=== PATIENT | female | born 2000 | race Caucasian/White ===

== ENCOUNTER 2019-07-26 12:39 | Emergency (ER) | payer MEDICAID ==
[~2019-07-26] VITALS: Ht 157.5 cm; Wt 49.9 kg
[2019-07-26 12:47] VITALS: BP 114/69
--- NOTE | 2019-07-26 12:54 | NUR ---
WAIT AT LOBBY. HANDED ON URINE CUP.
--- NOTE | 2019-07-26 13:48 | NUR ---
PT AMBULATED TO BED 09.
--- NOTE | 2019-07-26 13:54 | NUR ---
ERMD AT BEDSIDE
--- NOTE | 2019-07-26 13:55 | NUR ---
18 Y/O FEMALE PRESENTS TO ER WITH BURNING, PRESSURE, AND SCANT URINATION, SINCE THE AM. SHE DENIES ANY HEMATURIA. STATES PAIN IS AT A 7. NKDA. DENIES ANY PMH, DENIES TAKING ANY PRESCRIBED OR OTC MEDS. LAST MENSTRUAL CYCLE WAS 20 JUL 2019. SIDERAIL X1, WILL CONTINUE TO MONITOR
[2019-07-26] MEDS ORDERED: PHENAZOPYRIDINE 100 MG TAB PO ONE (14:05)
[2019-07-26] MEDS ORDERED: SULFAMETH/TRIMETH DS 800/160MG 1 TAB PO ONE (14:05)
[2019-07-26 14:24] VITALS: BP 114/69
--- NOTE | 2019-07-26 14:24 | NUR ---
PT LEFT WITHOUT TAKING RX
--- NOTE | 2019-07-26 14:24 | NUR ---
Patient discharged with v/s stable. Written and verbal after care instructions given and explained. Patient alert, oriented and verbalized understanding of instructions. Ambulatory with steady gait. All questions addressed prior to discharge. ID band removed. Patient advised to follow up with PMD. Rx of BACTRIM, AND PYRIDIUM given. Patient educated on indication of medication including possible reaction and side effects. Opportunity to ask questions provided and answered.
== END 2019-07-26 14:21 | disposition home or self-care (01) ==
LOC: MED 12:39
DX: N39.0 Urinary tract infection, site not specified (principal)
CPT/HCPCS: 81002; 81025; 99283

== ENCOUNTER 2019-12-08 15:24 | Emergency (ER) | payer MEDICAID ==
[~2019-12-08] VITALS: Ht 157.5 cm; Wt 49.9 kg
[2019-12-08 15:29] VITALS: BP 112/65
--- NOTE | 2019-12-08 15:36 | NUR ---
urine cup given for sample
--- NOTE | 2019-12-08 15:36 | NUR ---
c/o started today with frequency, urgency, hesistancy, and burning pain upon voiding denies dc/bleeding---
--- NOTE | 2019-12-08 15:43 | NUR ---
luann alarcon evaluating pt.
[2019-12-08 16:27] VITALS: BP 112/65
--- NOTE | 2019-12-08 16:27 | NUR ---
Patient discharged with v/s stable. Written and verbal after care instructions given and explained. Patient alert, oriented and verbalized understanding of instructions. Ambulatory with steady gait. All questions addressed prior to discharge. ID band removed. Patient advised to follow up with PMD. Rx of bactrim & pyridium given. Patient educated on indication of medication including possible reaction and side effects. Opportunity to ask questions provided and answered.
[2019-12-10 06:09] LABS: CHLAMYDIA TRACHOMATIS AMP DNA Negative (Negative)
== END 2019-12-08 16:27 | disposition home or self-care (01) ==
LOC: MED 15:24
DX: N39.0 Urinary tract infection, site not specified (principal)
CPT/HCPCS: 36415; 81002; 81025; 87491; 99283

== ENCOUNTER 2020-01-25 10:37 | Emergency (ER) | payer MEDICAID ==
[~2020-01-25] VITALS: Ht 157.5 cm; Wt 49.9 kg
[2020-01-25 10:43] VITALS: BP 104/58
[2020-01-25] MEDS ORDERED: PHENAZOPYRIDINE 100 MG TAB PO ONE (11:00)
[2020-01-25] MEDS ORDERED: cephALEXin 500 MG CAP PO ONE (11:00)
--- NOTE | 2020-01-25 11:01 | NUR ---
19 Y/O FEMALE WITH HX OF UTI SYMPTOMS PRESENTS WITH 1 DAY LOWER ABD PAIN, DYSURIA, FREQUENCY AND URINARY URGENCY. PT DENIES ANY N/V/D. VSS. URINE COLLECTED AND SEND TO LAB. RESP EVEN AND UNLABORED. DENIES ANY SOB/COUGH/FEVER NO PMH NKA
[2020-01-25 11:33] VITALS: BP 101/62
--- NOTE | 2020-01-25 11:33 | NUR ---
Patient discharged with v/s stable. Written and verbal after care instructions given and explained. Patient alert, oriented and verbalized understanding of instructions. Ambulatory with steady gait. All questions addressed prior to discharge. ID band removed. Patient advised to follow up with PMD. Rx of PYRIDIUM, CEPHALEXIN given. Patient educated on indication of medication including possible reaction and side effects. Opportunity to ask questions provided and answered. PT ISNTRUCTED ON HOME CARE INSTRUCTIONS AND THAT URINE WILL TURN ARABELLA IN COLOR WITH PYRIDIUM
[2020-01-25 12:02] LABS: APPEARANCE,URINE HAZY (CLEAR); BILIRUBIN,URINE NEGATIVE (NEGATIVE); BLOOD, URINE 3+ (NEGATIVE); COLOR,URINE YELLOW (YELLOW); LEUKOCYTE ESTERASE ,URINE 2+ (NEGATIVE); NITRITE, URINE NEGATIVE (NEGATIVE); UGLUCOSE NEGATIVE (NEGATIVE)
[2020-01-25 12:19] LABS: RBC,URINE 11-20 (MOD) /HPF (0-5)
[2020-01-25 12:20] LABS: WBC,URINE 16-25 (MOD) /HPF (0-5)
== END 2020-01-25 11:33 | disposition home or self-care (01) ==
LOC: MED 10:37
DX: N39.0 Urinary tract infection, site not specified (principal)
CPT/HCPCS: 81001; 81025; 87086; 99283

== ENCOUNTER 2020-02-17 13:52 | Emergency (ER) | payer MEDICAID ==
[~2020-02-17] VITALS: Ht 157.5 cm; Wt 50.8 kg
[2020-02-17 14:02] VITALS: BP 120/92
--- NOTE | 2020-02-17 15:02 | NUR ---
PT SITTING IN LOBBY, NAD
--- NOTE | 2020-02-17 15:03 | NUR ---
PT TO CHAIR C
[2020-02-17] MEDS ORDERED: cefTRIAXone 1,000 MG in LIDOCAINE MPF 1% 2.1 ML IM ONE (15:20)
--- NOTE | 2020-02-17 15:40 | NUR ---
PT STATES SHE DOES NOT WANT TO ROCPHIN SHOT. ASHLEY SAUCEDA MADE AWARE
[2020-02-17] MEDS ORDERED: cefTRIAXone 1,000 MG VIAL ONE (15:46)
[2020-02-17] MEDS ORDERED: LIDOCAINE MPF 1% 5 ML ONE (15:46)
--- NOTE | 2020-02-17 15:52 | NUR ---
C/O RECURRING DYSURIA , BURNING PAIN UPON VOIDING WITH LOWER BACK PAIN SEEN AND TREATED 2 WKS AGO BUT CONTINUES WITH PAIN AND DIFFICULTY VOIDING
[2020-02-17 15:53] VITALS: BP 118/81
[2020-02-17 16:57] LABS: BILIRUBIN,URINE NEGATIVE (NEGATIVE); BLOOD, URINE 3+ (NEGATIVE); COLOR,URINE YELLOW (YELLOW); LEUKOCYTE ESTERASE ,URINE 2+ (NEGATIVE); NITRITE, URINE NEGATIVE (NEGATIVE); UGLUCOSE NEGATIVE (NEGATIVE)
[2020-02-17 16:58] LABS: APPEARANCE,URINE CLOUDY (CLEAR)
[2020-02-17 17:12] LABS: WBC,URINE TOO MANY TO COUNT /HPF (0-5)
--- NOTE | 2020-02-20 11:08 | NUR ---
Urine culture received from lab. Culture and sensitivity received and shown to Dr. Wylie. New Rx for Cipro 500mg BID x7 days received. Phone number on file went directly to [facility]. Message was left for patient to return the phone call.
--- NOTE | 2020-02-20 15:49 | NUR ---
New Rx for Cipro 500mg BID x 14 tabs received. Patient called and given culture results. Spoke with patient to obtain pharmacy preference. New Rx called into [facility] pharmacy and spoke to [place]. Copy of C&S placed in discrepancy folder.
== END 2020-02-17 15:54 | disposition home or self-care (01) ==
LOC: MED 13:52
DX: N39.0 Urinary tract infection, site not specified (principal)
CPT/HCPCS: 81001; 81025; 87086; 87186; 99283; J0696; J2001

== ENCOUNTER 2020-03-15 19:19 | Emergency (ER) | payer MEDICAID ==
[~2020-03-15] VITALS: Ht 157.5 cm; Wt 52.2 kg
[2020-03-15 19:26] VITALS: BP 100/70
--- NOTE | 2020-03-15 19:26 | NUR ---
PT AMBULATED TO BED #4
--- NOTE | 2020-03-15 19:41 | NUR ---
MD CELIS AT BEDSIDE
--- NOTE | 2020-03-15 19:52 | NUR ---
UA COLLECTED DIP AND PREG TEST DONE, RESULT IN COMPUTER
--- NOTE | 2020-03-15 19:52 | NUR ---
PT C/O RLQ PAIN X 3 DAYS, PAIN 7/10 ACHING TYPE PAIN, PAIN RADIATES INTO HER BACK. DENIES ANY N/V/D. DENIES PAIN WITH URIANTION. AFEBRILE. BED IN LOWEST POSITION AND SIDERAIL UP X 1. NKA NO HX
[2020-03-15] MEDS: KETOROLAC 30 MG/ML VIAL IM ONE (20:09)
[2020-03-15 20:14] LABS: APPEARANCE,URINE CLEAR (CLEAR); BILIRUBIN,URINE NEGATIVE (NEGATIVE); BLOOD, URINE 3+ (NEGATIVE); COLOR,URINE YELLOW (YELLOW); LEUKOCYTE ESTERASE ,URINE NEGATIVE (NEGATIVE); NITRITE, URINE NEGATIVE (NEGATIVE); PH,URINE 7.5 (5.0-9.0); UGLUCOSE NEGATIVE (NEGATIVE)
--- NOTE | 2020-03-15 20:19 | NUR ---
PT RESTING MORE COMFORTABLY, STATES PAIN 3/10 AT THIS TIME.
[2020-03-15 20:22] LABS: RBC,URINE 11-20 (MOD) /HPF (0-5); WBC,URINE 0-5 /HPF (0-5)
--- NOTE | 2020-03-15 20:42 | NUR ---
ULTRASOUND AT BEDSIDE
--- NOTE | 2020-03-15 21:00 | NUR ---
PT NOW STATES POST ULTRASOUND ABD PAIN HAS INCREASED, MD CELIS AWARE
[2020-03-15] MEDS: fentaNYL citrate 0.05 MG/ML VIAL NS ONE (21:09)
--- NOTE | 2020-03-15 22:30 | NUR ---
PT RESTING MORE COMFORTABLY, PAIN DECREASED
[2020-03-15 22:49] VITALS: BP 105/71
--- NOTE | 2020-03-15 22:52 | NUR ---
Patient discharged with v/s stable. Written and verbal after care instructions given and explained. Patient alert, oriented and verbalized understanding of instructions. Ambulatory with steady gait. All questions addressed prior to discharge. ID band removed. Patient advised to follow up with PMD. Rx of NAPROSYN AND NORCO given. Patient educated on indication of medication including possible reaction and side effects. Opportunity to ask questions provided and answered.
== END 2020-03-15 22:49 | disposition home or self-care (01) ==
LOC: MED 19:19
DX: R10.2 Pelvic and perineal pain (principal); N83.209 Unspecified ovarian cyst, unspecified side; F12.90 Cannabis use, unspecified, uncomplicated
CPT/HCPCS: 76856; 81001; 81025; 93976; 96372; 99284; J1885; J3010; Q0092

== ENCOUNTER 2020-06-11 17:20 | Emergency (ER) | payer MEDICAID ==
[~2020-06-11] VITALS: Ht 162.6 cm; Wt 52.2 kg
[2020-06-11 17:21] VITALS: BP 112/72
--- NOTE | 2020-06-11 17:46 | NUR ---
19 Y/O FEMALE BIB SELF C/O UTI SYMPTOMS X2 DAYS, DYSURIA AND URGENCY. PT IS ALSO ON HER MENSTRUAL PERIOD. LAST UTI WAS TWO MONTHS AGO. DENIES ANY CRAMPING OR BACK PAIN. NO PMH NKA
[2020-06-11] MEDS ORDERED: SULFAMETH/TRIMETH 400/80MG 1 TAB ONE (17:58)
[2020-06-11] MEDS ORDERED: SULFAMETH/TRIMETH 400/80MG 1 TAB PO ONE (18:00)
[2020-06-11 18:01] VITALS: BP 112/72
--- NOTE | 2020-06-11 18:01 | NUR ---
Patient discharged with v/s stable. Written and verbal after care instructions given and explained. Patient alert, oriented and verbalized understanding of instructions. Ambulatory with steady gait. All questions addressed prior to discharge. ID band removed. Patient advised to follow up with PMD. Rx of BACTRIM, PHENOAZOPYRIDINE given. Patient educated on indication of medication including possible reaction and side effects. Opportunity to ask questions provided and answered.
== END 2020-06-11 18:01 | disposition home or self-care (01) ==
LOC: MED 17:23
DX: N39.0 Urinary tract infection, site not specified (principal)
CPT/HCPCS: 81002; 81025; 87086; 99283

== ENCOUNTER 2020-09-06 17:40 | Emergency (ER) | payer MEDICAID ==
[~2020-09-06] VITALS: Ht 157.5 cm; Wt 49.9 kg
[2020-09-06 17:43] VITALS: BP 112/56
--- NOTE | 2020-09-06 17:51 | NUR ---
Patient ambulated to bed 8 with steady/even gait.
--- NOTE | 2020-09-06 17:51 | NUR ---
Patient ambulated to restroom for urine sample.
--- NOTE | 2020-09-06 17:56 | NUR ---
Urine sample collected, walked to lab and handed to alisha Grace tech.
--- NOTE | 2020-09-06 17:58 | NUR ---
19 y/o F coming in from home with c/c painful urination. Patient states she woke up at 0800 today with an urge to pee and states she began experiencing painful urination. Patient states associated nausea, headache, and subrapubic pain (3/10, pressure/intermittent pain) when attempting to pee. Patient states since morning, she has felt urgency and dribbling when attempting to pee. Patient denies diarrhea, constipation, fever, chills, dizziness, weakness, SOB, CP. Pt states last BM today normal. LMP 08/22/20. Pt placed onto blood pressure cuff, pulse oximetry monitoring. Bed locked in lowest position, side rails x 1. PMH/Meds: Denies NKA Sx: Denies
[2020-09-06 18:08] LABS: APPEARANCE,URINE CLEAR (CLEAR); BILIRUBIN,URINE NEGATIVE (NEGATIVE); BLOOD, URINE 3+ (NEGATIVE); COLOR,URINE ORANGE (YELLOW); LEUKOCYTE ESTERASE ,URINE 3+ (NEGATIVE); NITRITE, URINE NEGATIVE (NEGATIVE); UGLUCOSE NEGATIVE (NEGATIVE)
[2020-09-06 18:22] LABS: WBC,URINE 80-100 /HPF (0-5)
--- NOTE | 2020-09-06 18:22 | NUR ---
ASHLEY Brantley is evaluating patient at bedside.
[2020-09-06] MEDS ORDERED: NITR100C7 PO (18:26)
[2020-09-06] MEDS ORDERED: PYR100 PO (18:26)
[2020-09-06 18:41] VITALS: BP 112/56
--- NOTE | 2020-09-06 18:41 | NUR ---
Patient discharged with v/s stable. Written and verbal after care instructions given and explained. Patient alert, oriented and verbalized understanding of instructions. Ambulatory with steady gait. All questions addressed prior to discharge. ID band removed. Patient advised to follow up with PMD. Rx of Nitrofurantoin, Phenazopyridine Hcl given. Patient educated on indication of medication including possible reaction and side effects. Opportunity to ask questions provided and answered.
== END 2020-09-06 18:41 | disposition home or self-care (01) ==
LOC: MED 17:40
DX: N39.0 Urinary tract infection, site not specified (principal); Z79.899 Other long term (current) drug therapy
CPT/HCPCS: 29515; 36415; 81001; 81025; 87086; 87491; 99283; 99285

== ENCOUNTER 2020-12-25 19:58 | Emergency (ER) | payer MEDICAID ==
[~2020-12-25] VITALS: Ht 160 cm; Wt 54.0 kg
[~2020-12-25 19:58] MED LIST: NITR100C7 PO; PYR100 PO
[2020-12-25 20:10] VITALS: BP 108/73
--- NOTE | 2020-12-25 20:10 | NUR ---
20 Y/O FEMALE PATIENT PRESENTS TO ED WITH UTI SYMPTOMS. PT STATES " THERE'S BURNING PAIN WHEN I PEE" . DENIES N/V/D; SKIN IS PINK/WARM/DRY; AAOX4 WITH EVEN AND STEADY GAIT; LUNGS CLEAR BL; HR EVEN AND REGULAR; PT DENIES ANY FEVER, CP, SOB, OR COUGH AT THIS TIME; PATIENT STATES PAIN OF 5/10 UPON PEEING AT THIS TIME; VSS; PATIENT POSITIONED FOR COMFORT; HOB ELEVATED; BEDRAILS UP X2; BED DOWN. ER MD MADE AWARE OF PT STATUS. NKA PMH: DENIES
[2020-12-25] MEDS ORDERED: CEPH-588 PO (20:39)
[2020-12-25] MEDS ORDERED: ACET-1182 PO (20:40)
--- NOTE | 2020-12-25 20:45 | NUR ---
Patient discharged with v/s stable. Written and verbal after care instructions given and explained. Patient alert, oriented and verbalized understanding of instructions. Ambulatory with steady gait. All questions addressed prior to discharge. ID band removed. Patient advised to follow up with PMD. Rx of KEFLEX AND TYLENOL given. Patient educated on indication of medication including possible reaction and side effects. Opportunity to ask questions provided and answered.
[2020-12-25 20:47] VITALS: BP 108/73
[2020-12-25 20:54] LABS: APPEARANCE,URINE CLEAR (CLEAR); BILIRUBIN,URINE NEGATIVE (NEGATIVE); BLOOD, URINE 3+ (NEGATIVE); COLOR,URINE YELLOW (YELLOW); LEUKOCYTE ESTERASE ,URINE TRACE (NEGATIVE); NITRITE, URINE NEGATIVE (NEGATIVE); PH,URINE 6.5 (5.0-9.0); UGLUCOSE NEGATIVE (NEGATIVE)
[2020-12-25 21:12] LABS: RBC,URINE 11-20 (MOD) /HPF (0-5)
== END 2020-12-25 20:45 | disposition home or self-care (01) ==
LOC: MED 19:58
DX: N39.0 Urinary tract infection, site not specified (principal); R21 Rash and other nonspecific skin eruption
CPT/HCPCS: 81001; 87086; 99283

== ENCOUNTER 2021-10-14 15:20 | Observation (INO) | payer MEDICAID ==
[~2021-10-14] VITALS: Ht 157.5 cm; Wt 54.4 kg
[~2021-10-14 15:20] MED LIST changes: +ACET-1182 PO; +CEPH-588 PO
[2021-10-14] MEDS ORDERED: HYDROcodone/APAP 5/325 MG 1 TAB TAB PO PRN (16:10)
[2021-10-14 16:37] LABS: BASOPHILS % (AUTO) 0.3 % (0.0-2.0); EOSINOPHILS % (AUTO) 0.1 % (0.0-4.0); HEMATOCRIT 29.2 % (36-48); HEMOGLOBIN 9.7 g/dL (12.0-16.0); LYMPHOCYTES # (AUTO) 1.1 K/uL (2.5-16.5); LYMPHOCYTES % (AUTO) 16.5 % (20.5-51.1); MEAN CORPUSCULAR HEMOGLOBIN 29 pg (27-31); MEAN CORPUSCULAR HGB CONC 33 g/dL (33-37); MEAN CORPUSCULAR VOLUME 87.4 fL (80-94); MONOCYTES # (AUTO) 0.4 K/uL (0.8-1.0); MONOCYTES % (AUTO) 6.5 % (1.7-9.3); NEUTROPHILS # (AUTO) 5.2 K/uL (1.8-7.7); NEUTROPHILS % (AUTO) 76.6 % (42.2-75.2); PLATELET COUNT (AUTO) 255 K/uL (140-450); RED BLOOD CELL COUNT(AUTO) 3.34 MIL/uL (4.20-5.40); RED CELL DISTRIBUTION WIDTH 13.3 % (11.6-13.7); WHITE BLOOD COUNT (AUTO) 6.7 K/uL (4.8-10.8)
[2021-10-14 17:03] LABS: ANION GAP 13.1 (8-16); CREATININE 0.4 mg/dL (0.6-1.3); POTASSIUM 3.1 mmol/L (3.5-5.1); TOTAL BILIRUBIN 0.4 mg/dL (0.0-1.0)
[2021-10-14 17:17] VITALS: BP 124/59
== END 2021-10-14 17:50 | disposition home or self-care (01) ==
LOC: MLD 15:20
PROVIDERS: ADMIT Obstetrics & Gynecology; ATTEND Obstetrics & Gynecology
DX: O26.893 Other specified pregnancy related conditions, third trimester (principal); Z20.822 Contact with and (suspected) exposure to COVID-19; R10.9 Unspecified abdominal pain; Z3A.31 31 weeks gestation of pregnancy; Z87.891 Personal history of nicotine dependence
CPT/HCPCS: 36415; 59025; 76805; 80053; 81000; 85025; 85384; 86886; 86900; 86901; 87426; G0378; Q0092

== ENCOUNTER 2022-07-04 12:02 | Emergency (ER) | payer MEDICAID ==
[~2022-07-04] VITALS: Ht 154.9 cm; Wt 55.8 kg
[2022-07-04 12:16] VITALS: BP 108/60
[2022-07-04 12:51] LABS: APPEARANCE,URINE CLEAR (CLEAR); BILIRUBIN,URINE NEGATIVE (NEGATIVE); BLOOD, URINE 2+ (NEGATIVE); COLOR,URINE YELLOW (YELLOW); LEUKOCYTE ESTERASE ,URINE NEGATIVE (NEGATIVE); NITRITE, URINE NEGATIVE (NEGATIVE); UGLUCOSE NEGATIVE (NEGATIVE)
[2022-07-04 13:18] LABS: RBC,URINE 0-5 /HPF (0-5)
--- NOTE | 2022-07-04 13:50 | NUR ---
BULLET SWAGING MACHINE ADJUSTER SANTIAGO ATTEMPTED TO BRING PT BACK, NOT FOUND IN LOBBY/OUTSIDE
--- NOTE | 2022-07-04 14:25 | NUR ---
2ND ATTEMPT, NOT FOUND IN LOBBY/OUTSIDE
--- NOTE | 2022-07-04 14:25 | NUR ---
PATIENT LEFT WITHOUT BEING SEEN BY WELDER EXPL[employer]ION SANTIAGO. NO FURTHER CARE PROVIDED FOR PATIENT.
[2022-07-05] MEDS ORDERED: PHEN-1877 PO (15:28)
[2022-07-05] MEDS ORDERED: CEPH-588 PO (15:28)
== END 2022-07-04 13:50 | disposition left against medical advice (07) ==
LOC: MED 12:02
DX: N39.0 Urinary tract infection, site not specified (principal); Z53.21 Procedure and treatment not carried out due to patient leaving prior to being seen by health care provider
CPT/HCPCS: 81001; 81025; 87086; 99283

== ENCOUNTER 2022-07-05 14:30 | Emergency (ER) | payer MEDICAID ==
[~2022-07-05] VITALS: Ht 157.5 cm; Wt 55.5 kg
[2022-07-05 14:48] VITALS: BP 96/54
--- NOTE | 2022-07-05 14:52 | NUR ---
PT AMB TO BED 2.
[2022-07-05] MEDS ORDERED: CEPH-588 PO (15:28)
[2022-07-05] MEDS ORDERED: PHEN-1877 PO (15:28)
--- NOTE | 2022-07-05 15:42 | NUR ---
Patient discharged with v/s stable. Written and verbal after care instructions dysuria and UTI given and explained. Patient alert, oriented and verbalized understanding of instructions. Ambulatory with steady gait. All questions addressed prior to discharge. ID band removed. Patient advised to follow up with PMD. Rx of Keflex and pyridium given. Patient educated on indication of medication including possible reaction and side effects. Opportunity to ask questions provided and answered.
[2022-07-05 15:44] LABS: APPEARANCE,URINE SL CLOUDY (CLEAR); BILIRUBIN,URINE NEGATIVE (NEGATIVE); BLOOD, URINE 3+ (NEGATIVE); COLOR,URINE AMBER (YELLOW); LEUKOCYTE ESTERASE ,URINE 1+ (NEGATIVE); NITRITE, URINE NEGATIVE (NEGATIVE); PH,URINE 5.5 (5.0-9.0); UGLUCOSE NEGATIVE (NEGATIVE)
[2022-07-05 16:00] LABS: OTHER CASTS, URINE None Seen /LPF (None Seen); RBC,URINE 11-20 (MOD) /HPF (0-5)
== END 2022-07-05 15:42 | disposition home or self-care (01) ==
LOC: MED 14:30
DX: N39.0 Urinary tract infection, site not specified (principal); Z79.899 Other long term (current) drug therapy
CPT/HCPCS: 81001; 81025; 87086; 99283

== ENCOUNTER 2023-04-30 13:33 | Emergency (ER) | payer MEDICAID ==
[~2023-04-30] VITALS: Ht 157.5 cm; Wt 55.3 kg
[~2023-04-30 13:33] MED LIST changes: +PHEN-1877 PO
[2023-04-30 13:50] VITALS: BP 105/58; PULSE 98; RESP 18; TEMP 98.8; O2SAT 98
[2023-04-30] MEDS ORDERED: FLUC150T PO (14:32)
== END 2023-04-30 15:00 | disposition home or self-care (01) ==
LOC: MED 13:33
DX: N76.0 Acute vaginitis (principal); Z79.899 Other long term (current) drug therapy
CPT/HCPCS: 81002; 81025; 99282

== ENCOUNTER 2023-07-07 12:58 | Emergency (ER) | payer MEDICAID ==
[~2023-07-07] VITALS: Ht 157.5 cm; Wt 59.0 kg
[~2023-07-07 12:58] MED LIST changes: +FLUC150T PO
[2023-07-07 13:15] VITALS: BP 104/73; PULSE 87; RESP 18; TEMP 98.1; O2SAT 96
[2023-07-07] MEDS ORDERED: CEPH-588 PO (14:17)
[2023-07-07] MEDS ORDERED: PHEN-1877 PO (14:17)
== END 2023-07-07 14:35 | disposition home or self-care (01) ==
LOC: MED 12:58
DX: N39.0 Urinary tract infection, site not specified (principal); Z79.899 Other long term (current) drug therapy
CPT/HCPCS: 99283

== ENCOUNTER 2023-09-09 16:59 | Emergency (ER) | payer MEDICAID ==
[~2023-09-09] VITALS: Ht 157.5 cm; Wt 59.0 kg
[2023-09-09 17:26] VITALS: BP 105/65; PULSE 96; RESP 16; TEMP 98.2; O2SAT 96
[2023-09-09] MEDS: methocarbamoL 500 MG TAB PO ONE (18:56)
[2023-09-09] MEDS: KETOROLAC 30 MG/ML VIAL IM ONE (19:00)
[2023-09-09] MEDS: LIDOCAINE 5% 1 EA PATCH TP ONE (19:02)
[2023-09-09] MEDS ORDERED: LID5T TP (19:20)
[2023-09-09] MEDS ORDERED: METH-1681 PO (19:20)
[2023-09-09] MEDS ORDERED: IBUP-2213 PO (19:20)
[2023-09-09 19:30] VITALS: BP 105/65; PULSE 96; RESP 16; TEMP 98.2; O2SAT 96
== END 2023-09-09 19:30 | disposition home or self-care (01) ==
LOC: MED 16:59
DX: S39.012A Strain of muscle, fascia and tendon of lower back, initial encounter (principal); S09.90XA Unspecified injury of head, initial encounter; Z79.899 Other long term (current) drug therapy; V49.88XA Car occupant (driver) (passenger) injured in other specified transport accidents, initial encounter; Y93.89 Activity, other specified; Y92.89 Other specified places as the place of occurrence of the external cause; Y99.8 Other external cause status
CPT/HCPCS: 81025; 96372; 99283; J1885

== ENCOUNTER 2023-10-15 15:34 | Emergency (ER) | payer MEDICAID ==
[~2023-10-15] VITALS: Ht 157.5 cm; Wt 57.2 kg
[~2023-10-15 15:34] MED LIST changes: +IBUP-2213 PO; +LID5T TP; +METH-1681 PO
[2023-10-15 15:47] VITALS: BP 99/59; PULSE 99; RESP 18; TEMP 98.9; O2SAT 97
== END 2023-10-15 17:23 | disposition left against medical advice (07) ==
LOC: MED 15:34
DX: R50.9 Fever, unspecified (principal); R19.7 Diarrhea, unspecified; R11.10 Vomiting, unspecified; R10.9 Unspecified abdominal pain; Z53.21 Procedure and treatment not carried out due to patient leaving prior to being seen by health care provider